=== PATIENT | male | born 1990 | race American Indian/Alaskan Native ===

== ENCOUNTER 2018-12-29 02:58 | Emergency (ER) | payer OTHER ==
[2018-12-29 03:28] LABS: Basophils % (Auto) 0.3 % (0.0-1.8); Eosinophils # (Auto) 0.1 K/mm3 (0.0-0.4); Eosinophils % (Auto) 0.7 % (0.0-4.3); Hematocrit 43.8 % (35.5-45.6); Hemoglobin 14.3 gm/dl (11.8-15.2); Lymphocytes # (Auto) 2.5 K/mm3 (1.2-5.4); Lymphocytes % (Auto) 22.1 % (13.4-35.0); Mean Corpuscular HGB Conc 33 % (32-34); Mean Corpuscular Volume 84 fl (84-94); Monocytes # (Auto) 0.7 K/mm3 (0.0-0.8); Monocytes % (Auto) 6.1 % (0.0-7.3); Platelet Count 175 K/mm3 (140-440); Red Cell Distribution Width 14.5 % (13.2-15.2)
[2018-12-29 03:47] LABS: BUN/Creatinine Ratio 10; Blood Urea Nitrogen 8 mg/dL (9-20); Calcium 9.4 mg/dL (8.4-10.2); Hemolysis Index 9
[2018-12-29] MEDS ORDERED: HALDOL IM PRN (05:40)
--- NOTE | 2018-12-29 05:44 | Event Note ---
Date: 12/29/18 28-year-old gentleman with a reported history of PTSD, polysubstance addiction, presenting with suicidality and depression on the anniversary of the of a family member. Patient is somewhat agitated, difficult to redirect. He is also hyperverbal. He is placed on a 1013. Screening psychiatric laboratory studies have been ordered. Psychiatric consultation has been requested. Vital Signs 12/29/18 12/29/18 03:09 05:30 Temperature 98.9 F Pulse Rate 84 Respiratory 20 18 Rate Blood Pressure 173/121 [Right] O2 Sat by Pulse 98 Oximetry Lab Results 12/29/18 12/29/18 12/29/18 Range/Units 03:10 03:10 03:10 WBC (4.5-11.0) K/mm3 RBC (3.65-5.03) M/mm3 Hgb (11.8-15.2) gm/dl Hct (35.5-45.6) % MCV (84-94) fl MCH (28-32) pg MCHC (32-34) % RDW (13.2-15.2) % Plt Count (140-440) K/mm3 Lymph % (Auto) (13.4-35.0) % [place] % (Auto) (0.0-7.3) % Eos % (Auto) (0.0-4.3) % Baso % (Auto) (0.0-1.8) % Lymph # (1.2-5.4) K/mm3 [place] # (0.0-0.8) K/mm3 Eos # (0.0-0.4) K/mm3 Baso # (0.0-0.1) K/mm3 Seg Neutrophils % (40.0-70.0) % Seg Neutrophils # (1.8-7.7) K/mm3 Sodium 137 (137-145) mmol/L Potassium 4.0 (3.6-5.0) mmol/L Chloride 101.0 (98-107) mmol/L Carbon Dioxide 22 (22-30) mmol/L Anion Gap 18 mmol/L BUN 8 L (9-20) mg/dL Creatinine 0.8 (0.8-1.5) mg/dL Estimated GFR > 60 ml/min BUN/Creatinine Ratio 10 % Glucose 103 H (75-100) mg/dL Calcium 9.4 (8.4-10.2) mg/dL Total Creatine Kinase (55-170) units/L Salicylates < 0.3 L (2.8-20.0) mg/dL Acetaminophen < 5.0 L (10.0-30.0) ug/mL Plasma/Serum Alcohol (0-0.07) % 12/29/18 12/29/18 12/29/18 Range/Units 03:10 03:10 04:04 WBC 11.5 H (4.5-11.0) K/mm3 RBC 5.20 H (3.65-5.03) M/mm3 Hgb 14.3 (11.8-15.2) gm/dl Hct 43.8 (35.5-45.6) % MCV 84 (84-94) fl MCH 28 (28-32) pg MCHC 33 (32-34) % RDW 14.5 (13.2-15.2) % Plt Count 175 (140-440) K/mm3 Lymph % (Auto) 22.1 (13.4-35.0) % [place] % (Auto) 6.1 (0.0-7.3) % Eos % (Auto) 0.7 (0.0-4.3) % Baso % (Auto) 0.3 (0.0-1.8) % Lymph # 2.5 (1.2-5.4) K/mm3 [place] # 0.7 (0.0-0.8) K/mm3 Eos # 0.1 (0.0-0.4) K/mm3 Baso # 0.0 (0.0-0.1) K/mm3 Seg Neutrophils % 70.8 H (40.0-70.0) % Seg Neutrophils # 8.2 H (1.8-7.7) K/mm3 Sodium (137-145) mmol/L Potassium (3.6-5.0) mmol/L Chloride (98-107) mmol/L Carbon Dioxide (22-30) mmol/L Anion Gap mmol/L BUN (9-20) mg/dL Creatinine (0.8-1.5) mg/dL Estimated GFR ml/min BUN/Creatinine Ratio % Glucose (75-100) mg/dL Calcium (8.4-10.2) mg/dL Total Creatine Kinase 163 (55-170) units/L Salicylates (2.8-20.0) mg/dL Acetaminophen (10.0-30.0) ug/mL Plasma/Serum Alcohol < 0.01 (0-0.07) %
[2018-12-29] MEDS: ATIVAN IM PRN ×3 (05:46→15:51)
--- NOTE | 2018-12-29 06:37 | Emergency Department Report ---
ED Psych HPI - General Chief Complaint: Psych Stated Complaint: SUICIDAL IDEATIONS Time Seen by Provider: 12/29/18 06:16 Source: patient, old records reviewed Mode of arrival: Ambulatory Limitations: No Limitations - History of Present Illness Initial Comments: 28-year-old male with a past history of polysubstance abuse, PTSD, and bipolar disorder presents to the hospital complaining of suicidal ideation. Tomorrow is the anniversary of his sister's murder. He admits to daily alcohol and cocaine abuse last use prior to arrival. History of alcohol withdrawal tremors without seizures. In the past patient has attempted to kill himself by overdosing on pills as planned this time is to overdose on drugs and alcohol. He's been noncompliant with his psychiatric medication 1 month. His previous psychiatrist located in [facility]. - Related Data Home Medications Medication Instructions Recorded Confirmed Last Taken No Known Home Medications [No 12/29/18 12/29/18 Unknown Reported Home Medications] Allergies Allergy/AdvReac Type Severity Reaction Status Date / Time No Known Allergies Allergy Unverified 12/29/18 03:01 ED Review of Systems ROS: Stated complaint: SUICIDAL IDEATIONS Other details as noted in HPI Comment: All other systems reviewed and negative ED Past Medical Hx - Past Medical History Previous Medical History?: No - Surgical History Past Surgical History?: No - Social History Smoking Status: Current Every Day Smoker Substance Use Type: Alcohol, Cocaine, Marijuana - Medications Home Medications: Home Medications Medication Instructions Recorded Confirmed Last Taken Type No Known Home Medications [No 12/29/18 12/29/18 Unknown History Reported Home Medications] ED Physical Exam - General Limitations: No Limitations - Other Other exam information: General: No limitations, patient is alert in no acute distress Head exam: Atraumatic, normocephalic Eyes exam: Normal appearance, pupils equal reactive to light, extraocular movements intact ENT: Moist mucous membrane Neck exam: Normal inspection, full range of motion, no meningismus nontender Respiratory exam: Clear to auscultation bilateral, no wheezes, rales, crackles Cardiovascular: Normal rate and rhythm, normal heart sounds Abdomen: Soft, nondistended, and nontender, with normal bowel sounds, no rebound, or guarding Extremity: Full range of motion normal inspection no deformity Back: Normal Inspection, full range of motion, no tenderness Neurologic: Alert, oriented x3, cranial nerves intact, no motor or sensory deficit, no tremor Psychiatric: normal affect, normal mood Skin: Warm, dry, intact ED Course Vital Signs 12/29/18 12/29/18 12/29/18 03:09 05:30 06:25 Temperature 98.9 F Pulse Rate 84 72 Respiratory 20 18 18 Rate Blood Pressure 173/121 128/86 [Right] O2 Sat by Pulse 98 99 Oximetry 12/29/18 09:53 Temperature 97.3 F L Pulse Rate 78 Respiratory 18 Rate Blood Pressure 130/91 [Right] O2 Sat by Pulse 98 Oximetry - Reevaluation(s) Reevaluation #1: 12/29/18 06:34 Repeat BP normal without intervention ED Medical Decision Making - Lab Data Result diagrams: 12/29/18 03:10 12/29/18 03:10 Lab Results 12/29/18 12/29/18 12/29/18 Range/Units 03:10 03:10 03:10 WBC (4.5-11.0) K/mm3 RBC (3.65-5.03) M/mm3 Hgb (11.8-15.2) gm/dl Hct (35.5-45.6) % MCV (84-94) fl MCH (28-32) pg MCHC (32-34) % RDW (13.2-15.2) % Plt Count (140-440) K/mm3 Lymph % (Auto) (13.4-35.0) % [place] % (Auto) (0.0-7.3) % Eos % (Auto) (0.0-4.3) % Baso % (Auto) (0.0-1.8) % Lymph # (1.2-5.4) K/mm3 [place] # (0.0-0.8) K/mm3 Eos # (0.0-0.4) K/mm3 Baso # (0.0-0.1) K/mm3 Seg Neutrophils % (40.0-70.0) % Seg Neutrophils # (1.8-7.7) K/mm3 Sodium 137 (137-145) mmol/L Potassium 4.0 (3.6-5.0) mmol/L Chloride 101.0 (98-107) mmol/L Carbon Dioxide 22 (22-30) mmol/L Anion Gap 18 mmol/L BUN 8 L (9-20) mg/dL Creatinine 0.8 (0.8-1.5) mg/dL Estimated GFR > 60 ml/min BUN/Creatinine Ratio 10 % Glucose 103 H (75-100) mg/dL Calcium 9.4 (8.4-10.2) mg/dL Total Creatine Kinase (55-170) units/L Urine Color (Yellow) Urine Turbidity (Clear) Urine pH (5.0-7.0) Ur Specific [place] (1.003-1.030) Urine Protein (Negative) mg/dL Urine Glucose (UA) (Negative) mg/dL Urine Ketones (Negative) mg/dL Urine Blood (Negative) Urine Nitrite (Negative) Urine Bilirubin (Negative) Urine Urobilinogen (<2.0) mg/dL Ur Leukocyte Esterase (Negative) Urine WBC (Auto) (0.0-6.0) /HPF Urine RBC (Auto) (0.0-6.0) /HPF Urine Mucus /HPF Salicylates < 0.3 L (2.8-20.0) mg/dL Urine Opiates Screen Urine Methadone Screen Acetaminophen < 5.0 L (10.0-30.0) ug/mL Ur Barbiturates Screen Ur Phencyclidine Scrn Ur Amphetamines Screen U Benzodiazepines Scrn Urine Cocaine Screen U Marijuana (THC) Screen Drugs of Abuse Note Plasma/Serum Alcohol (0-0.07) % 12/29/18 12/29/18 12/29/18 Range/Units 03:10 03:10 04:04 WBC 11.5 H (4.5-11.0) K/mm3 RBC 5.20 H (3.65-5.03) M/mm3 Hgb 14.3 (11.8-15.2) gm/dl Hct 43.8 (35.5-45.6) % MCV 84 (84-94) fl MCH 28 (28-32) pg MCHC 33 (32-34) % RDW 14.5 (13.2-15.2) % Plt Count 175 (140-440) K/mm3 Lymph % (Auto) 22.1 (13.4-35.0) % [place] % (Auto) 6.1 (0.0-7.3) % Eos % (Auto) 0.7 (0.0-4.3) % Baso % (Auto) 0.3 (0.0-1.8) % Lymph # 2.5 (1.2-5.4) K/mm3 [place] # 0.7 (0.0-0.8) K/mm3 Eos # 0.1 (0.0-0.4) K/mm3 Baso # 0.0 (0.0-0.1) K/mm3 Seg Neutrophils % 70.8 H (40.0-70.0) % Seg Neutrophils # 8.2 H (1.8-7.7) K/mm3 Sodium (137-145) mmol/L Potassium (3.6-5.0) mmol/L Chloride (98-107) mmol/L Carbon Dioxide (22-30) mmol/L Anion Gap mmol/L BUN (9-20) mg/dL Creatinine (0.8-1.5) mg/dL Estimated GFR ml/min BUN/Creatinine Ratio % Glucose (75-100) mg/dL Calcium (8.4-10.2) mg/dL Total Creatine Kinase 163 (55-170) units/L Urine Color (Yellow) Urine Turbidity (Clear) Urine pH (5.0-7.0) Ur Specific [place] (1.003-1.030) Urine Protein (Negative) mg/dL Urine Glucose (UA) (Negative) mg/dL Urine Ketones (Negative) mg/dL Urine Blood (Negative) Urine Nitrite (Negative) Urine Bilirubin (Negative) Urine Urobilinogen (<2.0) mg/dL Ur Leukocyte Esterase (Negative) Urine WBC (Auto) (0.0-6.0) /HPF Urine RBC (Auto) (0.0-6.0) /HPF Urine Mucus /HPF Salicylates (2.8-20.0) mg/dL Urine Opiates Screen Urine Methadone Screen Acetaminophen (10.0-30.0) ug/mL Ur Barbiturates Screen Ur Phencyclidine Scrn Ur Amphetamines Screen U Benzodiazepines Scrn Urine Cocaine Screen U Marijuana (THC) Screen Drugs of Abuse Note Plasma/Serum Alcohol < 0.01 (0-0.07) % 12/29/18 12/29/18 Range/Units 06:33 06:33 WBC (4.5-11.0) K/mm3 RBC (3.65-5.03) M/mm3 Hgb (11.8-15.2) gm/dl Hct (35.5-45.6) % MCV (84-94) fl MCH (28-32) pg MCHC (32-34) % RDW (13.2-15.2) % Plt Count (140-440) K/mm3 Lymph % (Auto) (13.4-35.0) % [place] % (Auto) (0.0-7.3) % Eos % (Auto) (0.0-4.3) % Baso % (Auto) (0.0-1.8) % Lymph # (1.2-5.4) K/mm3 [place] # (0.0-0.8) K/mm3 Eos # (0.0-0.4) K/mm3 Baso # (0.0-0.1) K/mm3 Seg Neutrophils % (40.0-70.0) % Seg Neutrophils # (1.8-7.7) K/mm3 Sodium (137-145) mmol/L Potassium (3.6-5.0) mmol/L Chloride (98-107) mmol/L Carbon Dioxide (22-30) mmol/L Anion Gap mmol/L BUN (9-20) mg/dL Creatinine (0.8-1.5) mg/dL Estimated GFR ml/min BUN/Creatinine Ratio % Glucose (75-100) mg/dL Calcium (8.4-10.2) mg/dL Total Creatine Kinase (55-170) units/L Urine Color Yellow (Yellow) Urine Turbidity Clear (Clear) Urine pH 6.0 (5.0-7.0) Ur Specific [place] 1.035 H (1.003-1.030) Urine Protein 30 mg/dl (Negative) mg/dL Urine Glucose (UA) Neg (Negative) mg/dL Urine Ketones Neg (Negative) mg/dL Urine Blood Neg (Negative) Urine Nitrite Neg (Negative) Urine Bilirubin Neg (Negative) Urine Urobilinogen 2.0 (<2.0) mg/dL Ur Leukocyte Esterase Neg (Negative) Urine WBC (Auto) 1.0 (0.0-6.0) /HPF Urine RBC (Auto) 3.0 (0.0-6.0) /HPF Urine Mucus 3+ /HPF Salicylates (2.8-20.0) mg/dL Urine Opiates Screen Presumptive negative Urine Methadone Screen Presumptive negative Acetaminophen (10.0-30.0) ug/mL Ur Barbiturates Screen Presumptive negative Ur Phencyclidine Scrn Presumptive negative Ur Amphetamines Screen Presumptive negative U Benzodiazepines Scrn Presumptive negative Urine Cocaine Screen Presumptive positive U Marijuana (THC) Screen Presumptive positive Drugs of Abuse Note Disclamer Plasma/Serum Alcohol (0-0.07) % - Medical Decision Making Suicidal with plan with noncompliance with medicine polysubstance abuse. 1013 and transfer form signed. Mental health evaluation requested and pending acceptance. - Differential Diagnosis cocaine abuse, alcohol abuse, bipolar, PTSD, depression, SI Critical Care Time: No Critical care attestation.: If time is entered above; I have spent that time in minutes in the direct care of this critically ill patient, excluding procedure time. ED Disposition Clinical Impression: Suicidal ideation, PTSD (post-traumatic stress disorder), Bipolar disorder, Cocaine abuse, Alcohol abuse, Noncompliance with medication regimen, Medical cl earance for psychiatric admission Disposition: [id number]/TX-[id number] PSY HOSP/PSY UNIT Is pt being admited?: No Condition: Stable Time of Disposition: 06:36
[2018-12-29] MEDS ORDERED: ATIVAN PO PRN ×2 (06:38)
[2018-12-29 06:45] LABS: Bilirubin,Urine NEG (Negative); Blood,Urine NEG (Negative); Color,Urine Yellow (Yellow); Mucus,Urine 3+ /HPF
[2018-12-29 06:48] LABS: Amphetamine Screen,Urine PRESUMPTIVE NEGATIVE; Benzodiazepines Screen,Urine PRESUMPTIVE NEGATIVE; Methadone Screen,Urine PRESUMPTIVE NEGATIVE; Opiate Screen,Urine PRESUMPTIVE NEGATIVE
[2018-12-29 07:08] LABS: Cannabinoid Screen,Urine PRESUMPTIVE POSITIVE; Cocaine Screen,Urine PRESUMPTIVE POSITIVE
--- NOTE | 2018-12-29 13:50 | Consultation ---
History of Present Illness - Reason for Consult Consult date: 12/29/18 Reason for consult: Mental Health Evaluation Requesting physician: SARI ESPITIA - Chief Complaint Chief complaint: "I will overdose" - History of Present Psychiatric Illness 28 y.o. AA male who presented to the ER for SI's and substance abuse. Today the patient is calm and cooperative during the assessment. He stated that he will overdose on "drugs" if discharged. He stated that his drug use and increased alcohol consumption is his "down fall." He stated that he drink (etoh) everyday and get high on recreational drugs often. Since his sister's (murder) a year ago, his want for recreational drugs have increased. He stated that he was the person who found his sister's body. He stated that he took Prazosin in the past for PTSD symptoms, but it wasn't effective. He rate his depression/anxiety 7/10, with 10 being the worse. He denies any previous suicide attempts when asked. He is adamant that he need help for his addictions. He denies HI's and AVH's. He denies erratic sleep and a poor appetite. He stated that he had a drink (etoh) 2 days ago. Medications and Allergies Allergies Allergy/AdvReac Type Severity Reaction Status Date / Time No Known Allergies Allergy Unverified 12/29/18 03:01 Home Medications Medication Instructions Recorded Confirmed Last Taken Type No Known Home Medications [No 12/29/18 12/29/18 Unknown History Reported Home Medications] Active Meds: Active Medications Hydroxyzine Pamoate (Vistaril) 25 mg PO BID JOSHUA Lorazepam (Ativan) 2 mg IM Q4HR PRN PRN Reason: Agitation Last Admin: 12/29/18 11:20 Dose: 2 mg Documented by: Lorazepam (Ativan) 2 mg PO Q1HR PRN PRN Reason: CIWA-Ar 8-15 Lorazepam (Ativan) 4 mg PO Q1HR PRN PRN Reason: CIWA-Ar 16-25 Sertraline HCl (Zoloft) 50 mg PO DAILY JOSHUA Past psychiatric history - Past Medical History Past Medical History: No medical history Past Surgical History: No surgical history - past Psychiatric treatment and history psychiatric treatment history: several inpatient psy settings in the past. Denies a fam psy hx. - Social History Social history: lives with family Mental Status Exam - Vital signs Last Vital Signs Temp 97.3 F L 12/29/18 09:53 Pulse 78 12/29/18 09:53 Resp 18 12/29/18 09:53 BP 130/91 12/29/18 09:53 Pulse Ox 98 12/29/18 09:53 - Exam Narrative exam: MSE: Appearance: in hospital attire Behavior: regular eye contact Speech: regular rate and tone Mood: "depressed" Affect: congruent to mood Thought Process: circumstantial Thought Content: denies /HI's and AVH's Motor Activity: ambulatory Cognition: A/O x3 Insight: fair Judgment: poor Results Result Diagrams: 12/29/18 03:10 12/29/18 03:10 Abnormal lab results 12/29/18 12/29/18 12/29/18 Range/Units 03:10 03:10 03:10 WBC (4.5-11.0) K/mm3 RBC (3.65-5.03) M/mm3 Seg Neutrophils % (40.0-70.0) % Seg Neutrophils # (1.8-7.7) K/mm3 BUN 8 L (9-20) mg/dL Glucose 103 H (75-100) mg/dL Ur Specific [place] (1.003-1.030) Salicylates < 0.3 L (2.8-20.0) mg/dL Acetaminophen < 5.0 L (10.0-30.0) ug/mL 12/29/18 12/29/18 Range/Units 03:10 06:33 WBC 11.5 H (4.5-11.0) K/mm3 RBC 5.20 H (3.65-5.03) M/mm3 Seg Neutrophils % 70.8 H (40.0-70.0) % Seg Neutrophils # 8.2 H (1.8-7.7) K/mm3 BUN (9-20) mg/dL Glucose (75-100) mg/dL Ur Specific [place] 1.035 H (1.003-1.030) Salicylates (2.8-20.0) mg/dL Acetaminophen (10.0-30.0) ug/mL All other labs normal. Assessment and Plan Assessment and plan: Impression: MDD. Substance Use DO (cocaine). Cannabis Use DO. PTSD. Hx of Alcohol Use DO. Unspecified Anxiety DO. Today the patient is calm and cooperative during the assessment. The patient endorses SI's. No acute withdrawals noted at this time (etoh). DDx: Substance Induced Mood DO Recommendation/Plan: Continue 1013. and start Zoloft 50 mg PO daily for depression/anxiety/PTSD and Vistarl 25 mg PO BID anxiety. Discussed possible suicidality/medication induced rayshawn with the patient reference Zoloft. Dispo: The patient was referred to inpatient psy services. Will staff with Dr. Selvin Mcdonald.
[2018-12-29] MEDS: VISTARIL PO SCH ×2 (15:33→22:00)
[2018-12-29] MEDS: ZOLOFT PO SCH (15:33)
[2018-12-30] MEDS: ZOLOFT PO SCH (11:12)
[2018-12-30] MEDS: ATIVAN IM PRN (11:12)
[2018-12-30] MEDS: VISTARIL PO SCH ×2 (11:12→23:17)
--- NOTE | 2018-12-30 17:32 | Progress Note ---
Subjective - Reason for Consult Consult date: 12/30/18 Reason for consult: follow up - Chief Complaint Chief complaint: 28 y.o. AA male who presented to the ER for SI's and substance abuse. Today the patient is calm and cooperative during the assessment. He stated that he will overdose on "drugs" if discharged. He stated that his drug use and increased alcohol consumption is his "down fall." He stated that he drink (etoh) everyday and get high on recreational drugs often. Since his sister's (murder) a year ago, his want for recreational drugs have increased. He stated that he was the person who found his sister's body. The patient endorses SI's. No acute withdrawals noted at this time (etoh). He reports a history of PTSD and psychotic symptoms. He was previously on haldol, seroquel 600mghs, and numerous other psychiatric medications. He mentions that xanax works for him. Mental Status Exam - Vital signs Last Vital Signs Temp 98.1 F 12/30/18 13:09 Pulse 64 12/30/18 13:09 Resp 20 12/30/18 13:09 BP 118/76 12/30/18 13:09 Pulse Ox 98 12/30/18 13:09 - Exam Narrative exam: MSE: Appearance: in hospital attire Behavior: regular eye contact Speech: regular rate and tone Mood: "depressed" and irritable Affect: congruent to mood Thought Process: circumstantial Thought Content: denies /HI's and AVH's Motor Activity: ambulatory Cognition: A/O x3 Insight: fair Judgment: poor Assessment and Plan Impression: MDD. Substance Use DO (cocaine). Cannabis Use DO. PTSD. Hx of Alcohol Use DO. Unspecified Anxiety DO. Today the patient is calm and cooperative during the assessment. The patient endorses SI's. No acute withdr awals noted at this time (etoh). He reports a history of PTSD and psychotic symptoms. He was previously on haldol, seroquel 600mghs, and numerous other psychiatric medications. He mentions that xanax works for him. DDx: Substance Induced Mood DO Recommendation/Plan: Continue 1013. and continue 50 mg PO daily for depression/anxiety/PTSD and Vistaril 25 mg PO BID anxiety. Discussed possible suicidality/medication induced rayshawn with the patient reference Zoloft. add seroquel 200mg hs (previously took seroquel 600mg hs) He was advised that benzos are not recommended due to active substance use. Dispo: The patient was referred to inpatient psy services. Will staff with Dr. Selvin Mcdonald.
[2018-12-31] MEDS: VISTARIL PO SCH ×2 (10:06→22:12)
[2018-12-31] MEDS: ZOLOFT PO SCH (10:06)
--- NOTE | 2018-12-31 13:20 | Progress Note ---
Subjective - Reason for Consult Consult date: 12/31/18 Reason for consult: Psychiatric Follow-up Evaluation - Chief Complaint Chief complaint: "I feel pretty good" Patient is a 28 y.o. AA male who presented to the ER for SI's and substance abuse. Today the patient is calm and cooperative during the assessment. He stated that he will overdose on "drugs" if discharged. He stated that his drug use and increased alcohol consumption will lead to a drug overdose. He states, "I need to be somewhere so that I can get intermediate card tender treatment such as therapy and rehabilitation." He reports appropriate sleep and appetite. He denies SI/HI's, A/VH's, and delusions. He endorses cravings to alcohol and drugs. Reports medication compliance. No side effects noted/reported. Mental Status Exam - Vital signs Last Vital Signs Temp 97.9 F 12/31/18 08:14 Pulse 63 12/31/18 08:14 Resp 18 12/31/18 08:14 BP 117/77 12/31/18 08:14 Pulse Ox 98 12/31/18 08:14 - Exam Narrative exam: Mental Status Exam: Appearance: in hospital attire Behavior: regular eye contact Speech: regular rate and tone Mood: "alright" Affect: congruent to mood Thought Process: circumstantial Thought Content: denies SI/HI's, AVH's, and delusions Motor Activity: ambulatory Cognition: A/O x 3 Insight: fair Judgment: poor Assessment and Plan Impression: MDD. Substance Use DO (cocaine). Cannabis Use DO. PTSD. Hx of Alcohol Use DO. Unspecified Anxiety DO. Today the patient is calm and cooperative during the assessment. The patient denies SI/HI's, A/VH's, and delusions. Endorses cravings. DDx: Substance Induced Mood DO Recommendation/Plan: 1. Continue 1013. 2. Continue Zoloft 50 mg PO daily for depression/anxiety/PTSD and Vistaril 25 mg PO BID anxiety. Discussed possible suicidality/medication induced rayshawn with the patient reference Zoloft. 3. Increase Seroquel 300mg Qhs (previously took seroquel 600mg hs). Discussed possible metabolic side effects. Disposition: The patient was referred to inpatient psychiatric services. Will staff with Dr. Selvin Mcdonald.
--- NOTE | 2019-01-01 10:21 | Progress Note ---
Subjective - Reason for Consult Consult date: 01/01/19 Reason for consult: Psychatry Follow-up - Chief Complaint Chief complaint: "I want to leave" Patient is a 28 y.o. AA male who presented to the ER for SI's and substance abuse. Today the patient is calm and cooperative during the assessment. He stated that he will follow up with outpatient psy services. He stated that he have much to "live" for when asked. He denies SI/HI's and AVH's. He denies any side effects of his medications. Mental Status Exam - Vital signs Last Vital Signs Temp 97.5 F L 01/01/19 07:30 Pulse 60 01/01/19 07:30 Resp 18 01/01/19 07:30 BP 96/63 01/01/19 07:30 Pulse Ox 97 01/01/19 07:30 - Exam Narrative exam: MSE: Appearance: calm, cooperative Behavior: regular eye contact Speech: regular rate and tone Mood: "okay" Affect: congruent to mood Thought Process: linear Thought Content: denies SI/HI's and AVH's Motor Activity: ambulatory Cognition: A/O x3 Insight: appropriate Judgment: appropriate Assessment and Plan Impression: MDD. Substance Use DO (cocaine). Cannabis Use DO. PTSD. Hx of Alcohol Use DO. Unspecified Anxiety DO. Today the patient is calm and cooperative during the assessment. The patient is no threat to self. DDx: Substance Induced Mood DO Recommendation/Plan: Rescind 1013. Continue Zoloft 50 mg PO daily for depression/anxiety/PTSD, Vistarl 25 mg PO BID anxiety, and home medication [id number] mg PO HS. . Discussed possible suicidality/medication induced rayshawn with the patient reference Zoloft. Also, discussed possible metabolic side effects of Seroquel with the patient. Dispo: The patient can follow up with [facility] for outpatient psy services. Will staff with Dr. Selvin Mcdonald.
[2019-01-01] MEDS: VISTARIL PO SCH (10:59)
[2019-01-01] MEDS: ZOLOFT PO SCH (11:00)
[2019-01-02 18:16] VITALS: BP 96/63
== END 2019-01-01 11:05 ==
LOC: EEVIPCON 02:58 → ED 02:58
DX: F31.9 Bipolar disorder, unspecified (principal); F43.10 Post-traumatic stress disorder, unspecified; F41.9 Anxiety disorder, unspecified; F14.10 Cocaine abuse, uncomplicated; F10.10 Alcohol abuse, uncomplicated; F17.200 Nicotine dependence, unspecified, uncomplicated; F12.10 Cannabis abuse, uncomplicated; Z91.14 Patient's other noncompliance with medication regimen
CPT/HCPCS: 36415; 80048; 80307; 81001; 82550; 85025; 96372; 99283; G0480; J2060; 80320; Q0177